=== PATIENT | female | born 1970 | race Caucasian/White ===

== ENCOUNTER 2017-03-21 13:47 | Day surgery (SDC) | payer BC ==
[2017-03-19 12:30] LABS: BASOPHILS 0.3 %; BASOPHILS ABSOLUTE 0.03 10/3/uL (0.0-0.16); EOSINOPHILS 4.7 %; EOSINOPHILS ABSOLUTE 0.46 10/3/uL (0.0-0.53); HEMATOCRIT 39.7 % (36.0-48.0); HEMOGLOBIN 12.7 g/dL (12.0-16.0); IMMATURE GRANULOCYTES 0.3 %; IMMATURE GRANULOCYTES ABSOLUTE 0.03 10/3/uL (0.0-0.11); LYMPHOCYTES ABSOLUTE 2.06 10/3/uL (0.67-4.30); MANUAL DIFF NO %; MEAN CORPUSCULAR HEMOGLOB 28.9 pg (26.0-34.0); MEAN CORPUSCULAR VOLUME 90.2 fL (80-100); MONOCYTES 7.4 %; MONOCYTES ABSOLUTE 0.72 10/3/uL (0.21-1.20); NEUTROPHILS 66.3 %; NEUTROPHILS ABSOLUTE 6.49 10/3/uL (2.02-8.40); PLATELET COUNT 346 10/3/uL (150-400); RBC DISTRIBUTION WIDTH 14.7 % (12.0-16.0); WHITE BLOOD CELLS 9.8 10/3/uL (4.5-10.5)
[2017-03-19 12:54] LABS: A/G RATIO 0.9 (0.7-1.9); ALBUMIN 3.7 G/DL (3.5-5.0); ALKALINE PHOSPHATASE 87 U/L (45-117); BUN (BLOOD UREA NITROGEN) 11 MG/DL (6-23); CALCIUM, SERUM 9.8 MG/DL (8.5-10.4); CHLORIDE, SERUM 102 MMOL/L (96-112); CO2 (CARBON DIOXIDE) 31 MMOL/L (24-34); CREATININE 0.83 MG/DL (0.55-1.02); GFR AFRICAN AMERICAN 96 ML/MIN (>=60); GFR NON AFRICAN AMERICAN 83 ML/MIN (>=60); GLUCOSE, SERUM 101 MG/DL (60-99); SGOT(AST) 22 U/L (5-40); SGPT(ALT) 25 U/L (5-65); SODIUM, SERUM 139 MMOL/L (135-148); TOTAL BILIRUBIN 0.3 MG/DL (0-1.2); TOTAL PROTEIN 7.7 G/DL (6.0-8.5)
[~2017-03-21] VITALS: Ht 157.5 cm; Wt 87.3 kg
--- NOTE | ~2017-03-21 | OP ---
Record Of Operation [facility] [address] [place]. [address] NAME: SHAYY SANDRA : 66 [place] [facility] [place] [id number] AGE: 47 ADM/REG DATE : 03/21/17 MR#: [id number] REPORT SERV DATE: 03/22/17 DICTATED BY: ANNABELLA RICHARDSON JR. 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 I presented her at the weekly breast conference and the patient is now to undergo breast preservation therapy. PREOPERATIVE DIAGNOSIS: Carcinoma, right breast. POSTOPERATIVE DIAGNOSIS: Carcinoma right breast. SURGERY PERFORMED: Champion node local localization followed by right breast segmentectomy and sentinel node resection with eventual axillary dissection. PROCEDURE IN DETAIL: The patient was initially injected in the nuclear medicine facility. She was taken to the operating room and under general anesthesia, she was prepped and draped in the supine position in the usual sterile fashion. A curvilinear incision was made over the palpable mass in the upper outer quadrant. Vertical dissection was carried down through the fatty tissue and a three-dimensional excision measuring 5 cm across was performed keeping the 3 cm mass center most within the specimen. It was removed and oriented for pathology. The margins were technically clear, but encroached on the previous 6 o'clock margin extending somewhat from the superficial to deeper edges. For this reason, an additional cup of tissue measuring 4 x 6 x 1.5 cm was taken from the 3 to 6 o'clock position incorporating subcutaneous fat as well as prepectoral fascia. The specimen was removed and oriented for pathology. The wound was irrigated and hemostasis obtained. The wound was closed with two layers of Monocryl. Attention turned to the right axilla. With help of the Gamma probe, a small curvilinear incision was made and vertical dissection was carried down to a singly active hot spot. A fleshy node was removed along with a slightly generous second node. The fleshy node was the active node. It was sent for frozen section as it was somewhat suspicious, but measured under a centimeter. A 1 mm deposit of tumor was evident and therefore frozen section was requested on the second lymph node, which indeed had a more significant amount of tumor within it. The decision was then made that the amount of tumor at her young age would necessitate axillary dissection. The axillary incision was extended and the subcutaneous fatty plane was entered. The border of the pectoralis was cleared and the pectoralis major minor muscles were retracted. The axillary vein was identified and dissection of it was from medial to lateral incorporating the level 2 and level 1 nodes. Dissection was carried out to the latissimus, which has already been cleared. Final dissection of the serratus muscle allowed preservation of the long thoracic and thoracodorsal bundles. The specimen was removed and oriented for pathology. Record Of Operation [facility] [id number] [place]. [address] NAME: SHAYY SANDRA : 66 [place]US [place] [facility] [place] [id number] AGE: 47 ADM/REG DATE : 03/21/17 MR#: [id number] REPORT SERV DATE: 03/22/17 DICTATED BY: ANNABELLA RICHARDSON JR. DATE: 03/22/17 REPORT STATUS : Draft TRANSCRIBED BY: NAEL DATE: 03/22/17 The wound was irrigated and hemostasis obtained. A suction drain was inserted and secured to the skin with Prolene. The patient tolerated the procedure well without complications. ESTIMATED BLOOD LOSS: Less than 30 mL. SPONGE COUNT: Correct. /NAEL Annabella Richardson Jr., M.D. / [id number] CC: Tim Davis Jr., M.D. Donna Hobgood, M.D. #[id number] (DR. RICHARDSON) NICOLE
[~2017-03-21 13:47] MED LIST: CYMBALTA30 PO; LORAZEPAM; PROTONIX PO
== END 2017-03-22 14:32 | disposition home or self-care (01) ==
LOC: SDC 13:47 → NM 13:47 → SDC 03-22 07:45
PROVIDERS: Surgery Surgical Oncology
PROC: 0HBT0ZZ Excision of Right Breast, Open Approach (ICD-10-PCS; principal; 2017-03-21)
PROC: 07B50ZX Excision of Right Axillary Lymphatic, Open Approach, Diagnostic (ICD-10-PCS; 2017-03-21)
DX: C77.3 Secondary and unspecified malignant neoplasm of axilla and upper limb lymph nodes (principal); C50.911 Malignant neoplasm of unspecified site of right female breast; G47.33 Obstructive sleep apnea (adult) (pediatric); K31.84 Gastroparesis; K21.9 Gastro-esophageal reflux disease without esophagitis; F41.9 Anxiety disorder, unspecified; F32.9 Major depressive disorder, single episode, unspecified; Z99.89 Dependence on other enabling machines and devices; Z90.49 Acquired absence of other specified parts of digestive tract; Z98.890 Other specified postprocedural states
CPT/HCPCS: 71020; 78195; 80053; 84703; 85025; 88305; 88307; 88331; A9270-GY; A9541; J0690; J2250; J2270; J2405; J2710; J3010